=== PATIENT | male | born 1955 | race Caucasian/White ===

== ENCOUNTER 2017-06-03 17:15 | Emergency (ER) | payer OTHER ==
[~2017-06-03] VITALS: Ht 172.7 cm; Wt 125.3 kg
[2017-06-03 17:23] VITALS: Ht 172.7 cm; Wt 125.3 kg
[2017-06-03] MEDS ORDERED: SOD CHLORIDE 0.9% 500 ML IV STA (19:08)
[2017-06-03] MEDS ORDERED: LIDOCAINE/MYLANTA 40 ML BTL PO STA (19:08)
[2017-06-03] MEDS ORDERED: BELLADONNA/PHENOBARBITAL TAB PO STA (19:08)
[2017-06-03] MEDS ORDERED: ONDANSETRON 4 MG INJ IV STA (19:08)
[2017-06-03 19:18] LABS: BASOPHILS % 0.3 % (0.0-2.0); EOSINOPHILS % 0.1 % (0.0-7.0); HEMATOCRIT 42.5 % (42.0-52.0); HEMOGLOBIN 14.6 g/dl (14.0-18.0); LYMPHOCYTES # 1.3 10^3/ul (0.8-2.9); LYMPHOCYTES % 16.3 % (15.0-51.0); MEAN CORPUSCULAR HEMOGLOBIN 30.9 pg (29.0-33.0); MEAN CORPUSCULAR HGB CONC 34.4 g/dl (32.0-37.0); MEAN CORPUSCULAR VOLUME 89.9 fl (82.0-101.0); MEAN PLATELET VOLUME 9.6 fl (7.4-10.4); MONOCYTE # 0.9 10^3/ul (0.3-0.9); NEUTROPHIL # 5.8 10^3/ul (1.6-7.5); PLATELET COUNT 160 10^3/UL (140-415); RED BLOOD COUNT 4.73 10^6/ul (4.70-6.10); RED CELL DISTRIBUTION WIDTH 13.1 % (11.5-14.5)
[2017-06-03] MEDS ORDERED: MULTIVITAMINS 10 ML, THIAMINE 100 MG, FOLIC ACID 1 MG, MAGNESIUM SULFATE 2 GM in SOD CH... IV ONE (19:30)
[2017-06-03] MEDS ORDERED: LORAZEPAM 2 MG INJ IV ONE (19:30)
[2017-06-03 19:33] LABS: ALANINE AMINOTRANSFERASE 193 IU/L (13-69); ALBUMIN/GLOBULIN RATIO 0.97; ALKALINE PHOSPHATASE 77 IU/L (42-121); ANION GAP 12 (8-16); ASPARTATE AMINO TRANSFERASE 71 IU/L (15-46); BILIRUBIN,INDIRECT 1.1 mg/dl (0-1.1); BILIRUBIN,TOTAL 1.1 mg/dl (0.2-1.3); BLOOD UREA NITROGEN 7 mg/dl (7-20); CALCIUM 9.3 mg/dl (8.4-10.2); CARBON DIOXIDE 27 mmol/L (21-31); CHLORIDE 99 mmol/L (97-110); CREATININE 0.75 mg/dl (0.61-1.24); GLUCOSE 118 mg/dl (70-220); POTASSIUM 3.8 mmol/L (3.5-5.1); SODIUM 134 mmol/L (135-144); TOTAL PROTEIN 8.1 g/dl (6.1-8.1)
[2017-06-03 19:45] LABS: TROPONIN-I < 0.012 ng/ml (0.00-0.12)
--- NOTE | 2017-06-03 19:59 | ERD ---
ER Documentation Chief Complaint Chief Complaint Complains of chest pain since today HPI 62-year-old man here for alcohol withdrawal, he states he has not been drinking for about 6 days but has a long history of alcohol abuse and has been drinking daily for the last 3 weeks, he states he's had a recent loss of appetite and has not been eating or drinking much fluids for the last 3 days. Patient denies vomiting, no blood per rectum or melena, no shortness of breath, no seizure activity, no loss of consciousness. Patient states she has had constant sharp nonexertional nonradiating chest pain, and states he feels very anxious and stressed out because of recent family issues. Patient denies suicidal homicidal ideation. ROS All systems reviewed and are negative except as per history of present illness. Medications Home Meds Active Scripts Chlordiazepoxide* (Chlordiazepoxide*) 25 Mg Capsule, 25 MG PO Q8 Y for CONTROL WITHDRAWAL SYMPTOMS, #15 CAP Prov:MARYLOU CRUZ MD 06/03/17 Allergies Allergies: Coded Allergies: No Known Allergy (Unverified , 06/03/17) PMhx/Soc Alcoholism, hypertension, obesity FmHx Family History: No diabetes Physical Exam Vitals Vital Signs Date Time Temp Pulse Resp B/P Pulse Ox O2 Delivery O2 Flow Rate FiO2 06/03/17 17:23 98.8 100 20 152/102 95 Physical Exam GENERAL: Well-developed, dehydrated, appears to be withdrawing, afebrile HEENT: Dry mucous membranes, pink conjunctiva, no cervical spine tenderness or step-off deformities, no goiter, no jaundice or icterus, extraocular movements intact without pain. NEURO: Alert and oriented 3, cranial nerves II through XII intact bilaterally, pupils equal round reactive to light, positive tongue fasciculations and mild tremors CARDIAC: Tachycardic and regular, no murmurs rubs or gallops LUNGS: Clear bilaterally no wheezing crackles or stridor ABDOMEN: Soft nontender, no guarding, no rigidity, no rebound, no psoas sign no obturator sign. Normoactive bowel sounds SKIN: Warm and dry to touch, no abrasions, contusions, or hematomas, no lacerations, no ecchymosis, no target lesions, and without ulcers EXTREMITIES: No clubbing cyanosis or edema, calves are bilaterally symmetrical, no Homans sign, no popliteal cord sign. PSYCH: Anxious Result Diagram: 06/03/17190706/03/171907 Results 24 hrs Laboratory Tests Test 06/03/17 19:08 White Blood Count 8.010^3/ul Red Blood Count 4.7310^6/ul Hemoglobin 14.6g/dl Hematocrit 42.5% Mean Corpuscular Volume 89.9fl Mean Corpuscular Hemoglobin 30.9pg Mean Corpuscular Hemoglobin Concent 34.4g/dl Red Cell Distribution Width 13.1% Platelet Count 77802^3/UL Mean Platelet Volume 9.6fl Neutrophils % 72.0% Lymphocytes % 16.3% Monocytes % 11.0% Eosinophils % 0.1% Basophils % 0.3% Nucleated Red Blood Cells % 0.0/100WBC Neutrophils # 5.810^3/ul Lymphocytes # 1.310^3/ul Monocytes # 0.910^3/ul Eosinophils # 0.010^3/ul Basophils # 0.010^3/ul Nucleated Red Blood Cells # 0.010^3/ul Sodium Level 134mmol/L Potassium Level 3.8mmol/L Chloride Level 99mmol/L Carbon Dioxide Level 27mmol/L Anion Gap 12 Blood Urea Nitrogen 7mg/dl Creatinine 0.75mg/dl Glucose Level 118mg/dl Calcium Level 9.3mg/dl Total Bilirubin 1.1mg/dl Direct Bilirubin 0.00mg/dl Indirect Bilirubin 1.1mg/dl Aspartate Amino Transf (AST/SGOT) 71IU/L Alanine Aminotransferase (ALT/SGPT) 193IU/L Alkaline Phosphatase 77IU/L Troponin I < 0.012ng/ml Total Protein 8.1g/dl Albumin 4.0g/dl Globulin 4.10g/dl Albumin/Globulin Ratio 0.97 Lipase 169U/L Ethyl Alcohol Level < 10.0mg/dl Current Medications Medications (Trade) Dose Ordered Sig/Elizabeth Route PRN Reason Start Time Stop Time Status Last Admin Dose Admin Multivitamins/ Thiamine HCl/ Folic Acid/ Magnesium Sulfate/ Sodium Chloride (Mvi Adult/ Vitamin B1/Folic Acid/Magnesium Sulfate/NS) 1,015.2 ml @ 500 mls/ hr Q2H2M ONCE IV 06/03/17 19:30 06/03/17 21:31 DC 06/03/17 20:20 Lorazepam 2 mg 2 mg ONCE ONCE IV 06/03/17 19:30 06/03/17 19:31 DC 06/03/17 19:37 Sodium Chloride (NS) 500 ml @ 500 mls/hr Q1H STAT IV 06/03/17 19:08 06/03/17 20:07 DC 06/03/17 19:37 Ondansetron HCl (Zofran Inj) 4 mg ONCE STAT IV 06/03/17 19:08 06/03/17 19:11 DC 06/03/17 19:37 Miscellaneous Medication (Gi Cocktail (2)) 40 ml ONCE STAT PO 06/03/17 19:08 06/03/17 19:11 DC 06/03/17 19:37 Belladonna/ Phenobarbital () 2 tab ONCE STAT PO 06/03/17 19:08 06/03/17 19:11 DC 06/03/17 19:37 Clonidine (Catapres) 0.1 mg ONCE ONCE PO 06/03/17 20:30 06/03/17 20:31 DC 06/03/17 20:19 Procedures/MDM IV line was established patient was placed on rn cardiac rhythm strip revealed a sinus tachycardia at 100 bpm with upright P and T waves. Patient was afebrile I administered 1 L normal saline intravenously and 500 cc banana bag occluding multivitamin, thiamine, folate. I also administered GI cocktail 30 cc p.o., Zofran 4 mg IV, and lorazepam 2 mg IV 1. Patient symptoms and hypertension improved after above therapy. Patient also received clonidine 0.1 mg p.o. 1 for later hypertension. EKG performed, read by me: Sinus tachycardia at 100 bpm, normal sinus rhythm, normal axis, no acute ST segment changes, narrow QRS complex, with good R-wave progression in precordial leads. Chest X-ray 1V Interpreted by me: Soft Tissue: No acute abnormalities Bones: No acute abnormalities Mediastinum/Cardiac Silhouette/Lungs: No acute abnormalities CBC and electrolytes were normal, liver function tests revealed mild transaminitis, troponin was negative Differential diagnoses considered, included but not limited to acute coronary syndrome, pulmonary embolism, aortic dissection, abdominal aortic aneurysm, sepsis, stroke, meningitis, encephalitis, pneumonia, appendicitis, cholecystitis , bowel obstruction, pyelonephritis, nephrolithiasis, cystitis, as well as metabolic, hematologic, and electrolyte abnormalities. As well as abscess, cellulitis, fractures, and dislocations. Patient feels much better at this time, and vital signs are normal, symptoms have improved. I did give strict instructions to return to the ED if symptoms continue or worsen, patient will otherwise follow-up with primary care physician. Patient understood instructions and agreed to plan. Disclaimer: Inadvertent spelling and grammatical errors are likely due to EHR/ dictation software use and do not reflect on the overall quality of patient care. Also, please note that the electronic time recorded on this note does not necessarily reflect the actual time of the patient encounter. Departure Diagnosis: Primary Impression: Chest pain Chest pain type: unspecified Qualified Code: R07.9 - Chest pain, unspecified type Additional Impressions: Alcohol withdrawal Complication of substance-induced condition: uncomplicated Qualified Code: F10.230 - Alcohol withdrawal syndrome without complication Hypertension Hypertension type: essential hypertension Qualified Code: I10 - Essential hypertension Grief reaction Condition: Good MARYLOU CRUZ MD Jun 03, 2017 19:58
[2017-06-03 20:04] LABS: ETHANOL < 10.0 mg/dl
[2017-06-03] MEDS ORDERED: CHLO25CA9 PO (20:14)
--- NOTE | 2017-06-03 20:16 | RADRPT ---
PROCEDURE: Portable chest x-ray. CLINICAL INDICATION: Abdominal pain. TECHNIQUE: Portable AP view of the chest. COMPARISON: None. FINDINGS: There is minimal left basilar atelectasis. No pulmonary edema or conolidation is identified. The ca rdiac silhouette is magnified. No pleural effusion is seen. There is no pneumothorax. No pneumope ritoneum is identified. IMPRESSION: 1. No evidence of acute cardiopulmonary disease. RPTAT: HTAR .Jeff Steiner MD, MD Date Time Electronically viewed and signed by .Jeff Steiner MD, on 06/03/2017 20:16 .R/
[2017-06-03 22:26] VITALS: BP 151/95; PULSE 80; RESP 21
== END 2017-06-03 22:27 | disposition home or self-care (01) ==
LOC: E/R 17:15
DX: R07.9 Chest pain, unspecified (principal); F10.230 Alcohol dependence with withdrawal, uncomplicated; I10 Essential (primary) hypertension; F43.20 Adjustment disorder, unspecified; E66.9 Obesity, unspecified; Z68.41 Body mass index [BMI] 40.0-44.9, adult
CPT/HCPCS: 36415; 71010; 80053; 80306; 83690; 84484; 85025; 96374; 96375; J2060; J2405; J3411; J3475; J7030; J7040; Z7502; Z7610; 93005